=== PATIENT | male | born 1975 | race Caucasian/White ===

== ENCOUNTER → 2021-06-09 | Outpatient (CLI) | payer OTHER | LOC: WOUNDCARE 08:11 | PROVIDERS: ATTEND Family Medicine | DX: S61.225A Laceration with foreign body of left ring finger without damage to nail, initial encounter (principal); T65.292A Toxic effect of other tobacco and nicotine, intentional self-harm, initial encounter; L03.114 Cellulitis of left upper limb | CPT/HCPCS: 11042; G0463 ==

== ENCOUNTER → 2021-07-07 | Outpatient (CLI) | payer OTHER | LOC: WOUNDCARE 08:07 | PROVIDERS: ATTEND Family Medicine | DX: S61.225A Laceration with foreign body of left ring finger without damage to nail, initial encounter (principal); T65.292A Toxic effect of other tobacco and nicotine, intentional self-harm, initial encounter; I96 Gangrene, not elsewhere classified | CPT/HCPCS: 99212 ==

== ENCOUNTER → 2021-07-07 | Outpatient (CLI) | payer OTHER | LOC: RAD 08:55 | PROVIDERS: ATTEND Family Medicine | DX: S61.225A Laceration with foreign body of left ring finger without damage to nail, initial encounter (principal) ==